=== PATIENT | male | born 1940 | race Caucasian/White ===

== ENCOUNTER 2017-08-05 06:22 | Inpatient (IN) | payer MEDICARE ==
[~2017-08-05] VITALS: Ht 175.3 cm; Wt 84.0 kg
[~2017-08-05 06:22] MED LIST: ALLO100T30 PO; ASPI-496 PO; ATEN50TA41 PO; DIAZ5TAB4 PO; IBUP-1221 PO; IBUP-1222 PO; OMEP-110 PO; OXYB5TAB7 PO; TERA10CA3 PO
[2017-08-05] MEDS ORDERED: KETOROLAC 60 MG/2 ML ONE (06:53)
[2017-08-05] MEDS ORDERED: TRANEXAMIC ACID 100 MG/ML, 10ML ONE ×2 (06:54→08:11)
[2017-08-05] MEDS ORDERED: ROPIvacaine/PF 0.2%, 20 ML ONE (06:54)
[2017-08-05] MEDS ORDERED: SODIUM CHLORIDE 0.9% 50 ML ONE (06:54)
[2017-08-05] MEDS ORDERED: VANCOMYCIN 1,000 MG ONE (06:54)
[2017-08-05] MEDS ORDERED: LACTATED RINGERS 1,000 ML IV SCH ×2 (07:22)
[2017-08-05] MEDS ORDERED: TRAM50TA2 PO (07:26)
[2017-08-05] MEDS ORDERED: GABA300C10 PO (07:26)
[2017-08-05 07:27] VITALS: BP 124/72
[2017-08-05] MEDS ORDERED: LIDOCAINE 1%, 2ML SQ PRN (07:30)
[2017-08-05] MEDS ORDERED: FENTANYL PF 100 MCG/2ML ONE (07:57)
[2017-08-05] MEDS ORDERED: MIDAZOLAM 1 MG/ML, 2ML ONE (07:58)
[2017-08-05] MEDS ORDERED: EPINEPHRINE 1 MG/ML, 1ML ONE (08:11)
[2017-08-05] MEDS ORDERED: FENTANYL PF 100 MCG/2ML IV PRN (10:00)
[2017-08-05] MEDS ORDERED: OXYcodone 5 MG/5 ML ORAL.SOL UDC PO PRN (10:00)
[2017-08-05] MEDS ORDERED: HYDROmorphone 1 MG/ML, 1ML IV PRN ×2 (10:00→10:30)
[2017-08-05] MEDS ORDERED: hydrALAzine 20 MG/ML, 1ML IV PRN (10:00)
[2017-08-05] MEDS ORDERED: ONDANSETRON 2MG/ML, 2ML IVPush PRN (10:00)
[2017-08-05] MEDS ORDERED: LABETALOL 5MG/ML, 20ML IV PRN (10:00)
[2017-08-05] MEDS ORDERED: PROMETHAZINE 25 MG/ML, 1ML IV PRN (10:00)
[2017-08-05] MEDS ORDERED: ONDANSETRON 4 MG TABLET PO PRN (10:30)
[2017-08-05] MEDS ORDERED: PROMETHAZINE 12.5 MG SUPP PR PRN (10:30)
[2017-08-05] MEDS ORDERED: SENNA/DOCUSATE TABLET PO PRN (10:30)
[2017-08-05] MEDS: HYDROcodone/APAP 10/325 MG TABLET PO SCH ×4 (10:30→23:56)
[2017-08-05] MEDS ORDERED: ACETAMINOPHEN 325 MG TABLET PO PRN (10:30)
[2017-08-05] MEDS ORDERED: HYDROcodone/APAP 10/325 MG TABLET PO PRN (10:30)
[2017-08-05] MEDS ORDERED: ONDANSETRON 2MG/ML, 2ML IV PRN (10:30)
[2017-08-05] MEDS ORDERED: PROMETHAZINE 25 MG/ML, 1ML IM PRN (10:30)
[2017-08-05] MEDS ORDERED: MAGNESIUM HYDROXIDE 8%, 30ML UDC PO PRN (10:30)
[2017-08-05] MEDS ORDERED: OXYcodone IR 5MG TABLET PO PRN (10:30)
[2017-08-05] MEDS ORDERED: DIAZEPAM 5 MG TABLET PO PRN (10:30)
[2017-08-05] MEDS ORDERED: DIPHENHYDRAMINE 25 MG CAPSULE PO PRN (10:30)
[2017-08-05] MEDS ORDERED: ALUMINUM/MAG/SIMETHICONE 30 ML UDC PO PRN (10:30)
[2017-08-05] MEDS ORDERED: BISACODYL 10 MG SUPP PR PRN (10:30)
[2017-08-05] MEDS ORDERED: TRANEXAMIC ACID 1,000 MG in SODIUM CHLORIDE 0.9% 100 ML IVPB ONE (11:00)
[2017-08-05] MEDS ORDERED: OXYcodone 5 MG/5 ML ORAL.SOL UDC ONE (11:28)
[2017-08-05 12:49] VITALS: BP 131/85
[2017-08-05] MEDS: D5%-0.45% NACL 1,000 ML IV SCH ×2 (13:00→21:00)
[2017-08-05] MEDS: CEFAZOLIN PMX 2GM/50ML 50 ML IVPB SCH ×2 (16:31→23:59)
[2017-08-05] MEDS: ASPIRIN 81 MG TABLET EC PO SCH (18:54)
[2017-08-05 20:08] VITALS: BP 167/89
[2017-08-05] MEDS: OXYBUTYNIN CHLORIDE 5 MG TABLET PO SCH (20:21)
[2017-08-05] MEDS: DOCUSATE 100 MG CAPSULE PO SCH (20:22)
[2017-08-05] MEDS: TERAZOSIN 5MG CAPSULE PO SCH (20:22)
[2017-08-05] MEDS ORDERED: ZOLPIDEM 5MG TABLET PO PRN (21:00)
[2017-08-06 00:09] VITALS: BP 155/78
[2017-08-06] MEDS: HYDROcodone/APAP 10/325 MG TABLET PO SCH ×2 (04:21→08:47)
[2017-08-06] MEDS: D5%-0.45% NACL 1,000 ML IV SCH ×3 (04:22→19:59)
[2017-08-06 04:37] VITALS: BP 143/72
[2017-08-06 05:25] LABS: HEMOGLOBIN 14.4 g/dL (13.7-18.0)
[2017-08-06] MEDS: ASPIRIN 81 MG TABLET EC PO SCH ×2 (05:33→18:06)
[2017-08-06] MEDS ORDERED: DEXAMETHASONE 4 MG/ML, 1ML IVPush SCH (06:00)
[2017-08-06 07:30] VITALS: BP 120/78
[2017-08-06] MEDS: OMEPRAZOLE 20 MG CAPSULE.DR PO SCH (07:33)
[2017-08-06] MEDS: ALLOPURINOL 100 MG TABLET PO SCH (08:46)
[2017-08-06] MEDS: MULTIVITAMINS/MINERALS TABLET PO SCH (08:47)
[2017-08-06] MEDS: DOCUSATE 100 MG CAPSULE PO SCH ×2 (08:47→19:58)
[2017-08-06] MEDS: ATENOLOL 50 MG TABLET PO SCH (08:47)
[2017-08-06] MEDS: KETOROLAC 30 MG/1 ML IV SCH ×2 (10:37→19:10)
[2017-08-06] MEDS: HYDROcodone/APAP 10/325 MG TABLET PO PRN ×3 (13:38→22:17)
[2017-08-06 14:00] VITALS: BP 136/75
[2017-08-06 19:55] VITALS: BP 144/73
[2017-08-06] MEDS: TERAZOSIN 5MG CAPSULE PO SCH (19:59)
[2017-08-06] MEDS: OXYBUTYNIN CHLORIDE 5 MG TABLET PO SCH (19:59)
[2017-08-07 01:52] VITALS: BP 152/86
[2017-08-07] MEDS: KETOROLAC 30 MG/1 ML IV SCH ×2 (02:11→11:35)
[2017-08-07] MEDS: D5%-0.45% NACL 1,000 ML IV SCH ×2 (02:11→13:00)
[2017-08-07] MEDS: ASPIRIN 81 MG TABLET EC PO SCH (05:36)
[2017-08-07 05:54] LABS: HEMATOCRIT 39.6 % (39.2-51.8); HEMOGLOBIN 13.5 g/dL (13.7-18.0)
[2017-08-07] MEDS: OMEPRAZOLE 20 MG CAPSULE.DR PO SCH (07:40)
[2017-08-07 07:54] VITALS: BP 145/71
[2017-08-07] MEDS: ATENOLOL 50 MG TABLET PO SCH (09:26)
[2017-08-07] MEDS: DOCUSATE 100 MG CAPSULE PO SCH (09:26)
[2017-08-07] MEDS: ALLOPURINOL 100 MG TABLET PO SCH (09:27)
[2017-08-07] MEDS: MULTIVITAMINS/MINERALS TABLET PO SCH (09:27)
[2017-08-07 11:52] VITALS: BP 154/77
[2017-08-07 13:00] VITALS: BP 154/77
[2017-08-07] MEDS ORDERED: OXYC5CAP2 PO (13:51)
== END 2017-08-07 14:10 | disposition home or self-care (01) | DRG 470 ==
LOC: ORIP 06:22 → 4NOR 12:19 → DCLOUNGE 08-07 13:48
PROVIDERS: ADMIT Orthopaedic Surgery; ATTEND Orthopaedic Surgery
PROC: 0SRC0J9 Replacement of Right Knee Joint with Synthetic Substitute, Cemented, Open Approach (ICD-10-PCS; principal; 2017-08-05 09:30)
DX: M17.11 Unilateral primary osteoarthritis, right knee (principal); K21.9 Gastro-esophageal reflux disease without esophagitis; R03.0 Elevated blood-pressure reading, without diagnosis of hypertension; Z90.49 Acquired absence of other specified parts of digestive tract; Z87.891 Personal history of nicotine dependence
CPT/HCPCS: 36415; 85014; 85018; C1713; J0171; J0690; J1100; J1885; J2250; J2704; J2795; J3010; J3370; J3490; C1776; J7120

== ENCOUNTER → 2018-06-24 | Outpatient (CLI) | payer MEDICARE ==
[~2018-06-24] MED LIST changes: +GABA300C10 PO; +OMNIPAQUE 350 MG/ML, 150 ML BOTTLE ONE; +OXYC5CAP2 PO; +TRAM50TA2 PO
== END | disposition home or self-care (01) ==
LOC: CFH 14:42
PROVIDERS: ATTEND Physician Assistant Surgical
DX: K76.0 Fatty (change of) liver, not elsewhere classified (principal); N28.1 Cyst of kidney, acquired; N40.0 Benign prostatic hyperplasia without lower urinary tract symptoms; K57.30 Diverticulosis of large intestine without perforation or abscess without bleeding; K40.90 Unilateral inguinal hernia, without obstruction or gangrene, not specified as recurrent; N32.3 Diverticulum of bladder
CPT/HCPCS: 74178; 82565; Q9967